=== PATIENT | male | born 1965 | race Caucasian/White ===

== ENCOUNTER → 2021-01-17 09:59 | Outpatient (BNVA) | payer OTHER, SELFPAY | PROVIDERS: Visit Provider Orthopaedic Surgery | DX: S43.102A Unspecified dislocation of left acromioclavicular joint, initial encounter (principal); S42.192A Fracture of other part of scapula, left shoulder, initial encounter for closed fracture | CPT/HCPCS: 73030 ==

== ENCOUNTER → 2021-02-15 09:17 | Outpatient (BNVA) | payer OTHER, SELFPAY | PROVIDERS: Visit Provider Orthopaedic Surgery | DX: T14.8XXA Other injury of unspecified body region, initial encounter (principal); S43.102A Unspecified dislocation of left acromioclavicular joint, initial encounter; X58.XXXA Exposure to other specified factors, initial encounter | CPT/HCPCS: 73030 ==